=== PATIENT | female | born 1965 | race Hispanic/Latino ===

== ENCOUNTER 2018-07-07 14:15 | Outpatient (CLI) | payer BC | END 2018-07-07 14:16 | disposition home or self-care (01) | LOC: BICMAMMO 14:15 | PROVIDERS: ATTEND Specialist | DX: Z08 Encounter for follow-up examination after completed treatment for malignant neoplasm (principal); Z85.3 Personal history of malignant neoplasm of breast; Z80.3 Family history of malignant neoplasm of breast | CPT/HCPCS: 77066; G0279 ==

== ENCOUNTER 2019-03-08 07:53 | Outpatient (CLI) | payer BC ==
--- NOTE | 2019-03-08 10:40 | BD ---
BONE DENSITOMETRY: Date: 03/08/19 INDICATION: Postmenopausal osteoporosis screening. FINDINGS: Lumbar Spine: BMD (g/cm2) L1 0.862 T-Score: -1.2 L2 0.864 T-Score: -1.5 L3 0.859 T-Score: -2.0 L4 0.959 T-Score: -0.9 Total 0.888 T-Score: -1.4 Left Femoral Neck: 0.635 T-Score: -1.0 Total Femur: 1.003 T-Score: 0.5 IMPRESSION: 1. Bone mineral density of the lumbar spine indicates osteopenia. 2. Bone mineral density of the femoral neck within normal range. 10 YEAR FRACTURE RISK: Major osteoporotic fracture: 4.6%. Hip fracture: 0.2%. POS: OFF
== END 2019-03-08 07:54 | disposition home or self-care (01) ==
LOC: BICMAMMO 07:53
PROVIDERS: ATTEND Obstetrics & Gynecology
DX: Z13.820 Encounter for screening for osteoporosis (principal); M85.89 Other specified disorders of bone density and structure, multiple sites
CPT/HCPCS: 77080

== ENCOUNTER 2019-07-08 13:44 | Outpatient (CLI) | payer BC ==
--- NOTE | 2019-07-08 14:19 | MMO ---
Bilateral MAMMO Bilat Diag [facility]. CLINICAL HISTORY: Patient is 54 years old and is seen for diagnostic exam. The patient has the following family history of breast cancer: sister, malignant (generic) and paternal grandmother, malignant (generic). The patient has a history of Lumpectomy procedure revealed invasive ductal right breast carcinoma in May, and Ultrasound Guided Core Biopsy procedure revealed invasive ductal right breast carcinoma in April,. The patient has a history of right Ultrasound Guided Core Biopsy in April,. VIEWS: The views performed were: bilateral craniocaudal with tomosynthesis; bilateral mediolateral oblique with tomosynthesis; and bilateral mediolateral with tomosynthesis. FILMS COMPARED: The present examination has been compared to prior imaging studies performed at [facility] on 04/25/2016, 05/01/2016, 07/06/2017 and 07/07/2018. This study has been interpreted with the assistance of computer-aided detection. MAMMOGRAM FINDINGS: The breasts are heterogeneously dense, which could obscure a lesion on mammography. There is a stable area of architectural distortion and a stable post-surgical scar seen in the upper-outer region of the right breast. There are no suspicious masses, suspicious calcifications, or new areas of architectural distortion. IMPRESSION: THERE IS NO MAMMOGRAPHIC EVIDENCE OF MALIGNANCY. THE FINDINGS AND RECOMMENDATIONS WERE DISCUSSED WITH THE PATIENT PRIOR TO HER LEAVING THE CENTER. A ROUTINE FOLLOW-UP MAMMOGRAM IN 1 YEAR IS RECOMMENDED. THE RESULTS OF THIS EXAM WERE SENT TO THE PATIENT. ACR BI-RADS Category 2 - Benign finding MAMMOGRAPHY NOTE: 1. A negative mammogram report should not delay a biopsy if a dominant of clinically suspicious mass is present. 2. Approximately 10% to 15% of breast cancers are not detected by mammography. 3. Adenosis and dense breasts may obscure an underlying neoplasm. Reported by: ANA LAURA ROSE MD Electonically Signed: [id number]
== END 2019-07-08 13:45 | disposition home or self-care (01) ==
LOC: BICMAMMO 13:44
PROVIDERS: ATTEND Obstetrics & Gynecology
DX: Z08 Encounter for follow-up examination after completed treatment for malignant neoplasm (principal); Z80.3 Family history of malignant neoplasm of breast; Z85.3 Personal history of malignant neoplasm of breast
CPT/HCPCS: 77066; G0279

== ENCOUNTER 2020-07-10 15:22 | Outpatient (CLI) | payer BC ==
--- NOTE | 2020-07-10 16:32 | BD ---
BONE DENSITOMETRY USING DEXA: Date: 07/10/2020 HISTORY: Postmenopausal screening for osteoporosis. FINDINGS: Lumbar Spine: BMD (g/cm2) L1 0.941 T-Score: -0.4 Z-Score: 0.4 L2 0.885 T-Score: -1.3 Z-Score: -0.4 L3 0.880 T-Score: -1.9 Z-Score: -0.9 L4 0.942 T-Score: -1.1 Z-Score: -0.1 L1-L4 0.912 T-Score: -1.2 Z-Score: -0.3 Femoral Neck: 0.703 T-Score: -1.3 Z-Score: -0.4 Total Femur: 0.991 T-Score: 0.4 Z-Score: 1.0 There has been interval improvement of 2.7% in the bone mineral density of the lumbar spine and a red uction of 1.3% in the bone mineral density of the proximal femur since 03/08/2019. The 10 year fracture risk for a major osteoporotic fracture is 5.5% and for a hip fracture is 0.3%. IMPRESSION: Osteopenia. POS: AH
== END 2020-07-10 15:23 | disposition home or self-care (01) ==
LOC: BICMAMMO 15:22
PROVIDERS: ATTEND Specialist
DX: M85.89 Other specified disorders of bone density and structure, multiple sites (principal)
CPT/HCPCS: 77080

== ENCOUNTER 2023-11-24 13:36 | Outpatient (CLI) | payer BC | END 2023-11-24 13:37 | disposition home or self-care (01) | LOC: BICULT 13:36 | PROVIDERS: ATTEND Specialist | DX: R31.9 Hematuria, unspecified (principal) | CPT/HCPCS: 76770 ==